=== PATIENT | male | born 1985 | race Caucasian/White ===

== ENCOUNTER 2024-12-25 08:44 | Emergency (ER) | payer SELFPAY ==
[2024-12-25 08:53] VITALS: BP 135/79
--- NOTE | 2024-12-25 09:32 | ED.GENMED ---
History of Present Illness
General
Chief Complaint: Back Pain
Source: patient
Exam Limitations: none
Time Seen by Provider: 12/25/24 09:03
Nursing documentation reviewed up to this point in time: agreed with
History of Present Illness
History of Present Illness:
39-year-old male presents emergency room complaining of low back pain for the last week on the left lower back. He has had this happen multiple times before and it usually goes away on its own. He feels is getting worse. He works in [employer] and
does manual labor all day long.
Past History
Past History
ED Past Medical History: GERD and Other (Cellulitis)
ED Past Surgical History: Orthopedic
Social History
Tobacco: Smoker
Alcohol: Occasional
Drug: None
Personal: Single
Living: with family
Employment: Employed
Review of Systems
Review of Systems
Allergies reviewed?: Yes
All Other Systems: Not applicable
Constitutional: Reports no symptoms
EENT: Reports no symptoms
Respiratory: Reports no symptoms
Cardiac: Reports no symptoms
ABD/GI: Reports no symptoms
: Reports no symptoms
Musculoskeletal: Reports back pain
Skin: Reports no symptoms
Neurological: Reports no symptoms
Endocrine: Reports no symptoms
Hematologic/Lymphatic: Reports no symptoms
Psychiatric: Reports no symptoms
Phy Exam
Physical Exam
Physical Exam:
Physical Exam
General: no apparent distress, not acutely ill
Neck: supple. no meningeal signs. normal posterior pharynx
Heart: equal radial pulses.
HEENT: Pupils equal round reactive to light, EOMI
Lungs: no acute respiratory distress.
Abdomen: normal bowel sounds. not tender. no CVAT
Neuro: alert and oriented. no focal neurological deficits cranial nerves II through XII intact
Skin: no rash
Psychiatric: well kept. interactive and cooperative
Extremities: no edema. no calf tenderness. negative homans. good distal pulses
back: non tender, no step off deformity
Course
Orders/Labs/Results
Orders:
Orders
12/25/24 09:30
Ketorolac [Toradol] 15 mg IM NOW STA
Lumbar Spine Complete, 4 View [CR Lumbar Spine Comp Min 4 Vw*] Urgent
Comment:
Reason For Exam: left lower back
Vital Signs
Initial and Last Documented VS:
Initial Vital Signs
Temp Pulse Resp BP Pulse Ox
98.4 F 85 16 135/79 98
12/25/24 08:53 12/25/24 08:53 12/25/24 08:53 12/25/24 08:53 12/25/24 08:53
Last Documented Vital Signs
Temp Pulse Resp BP Pulse Ox
98.4 F 85 16 135/79 98
12/25/24 08:53 12/25/24 08:53 12/25/24 08:53 12/25/24 08:53 12/25/24 09:35
MDM/Problems Addressed
Differential Diagnosis Includes:
Cauda equina, degenerative disc disease
MDM/Problems Addressed:
39-year-old male with low back pain, likely strain. No signs of cauda equina or epidural abscess. Patient stable for discharge. Follow-up primary care and pain management.
*Radiology
Radiology exam reviewed: radiology read reviewed (Lumbar x-ray no acute findings degenerative disc disease at L5-S1, L4-L5)
*Pulse Oximetry
SaO2: 98
Oxygen Mode of Delivery: Room air
Patient hypoxic: no
*Critical Care Note
Total Time (30-74mins, 75-104mins- exclusive of procedures): Not Applicable
Patient Management
Social determinants of health affecting care: Living situation and Strong social support
Escalation/DeEscalation of care consider admission/obs:
Admit not indicated
ED Attending Note
-
Portions of this chart may have been created with voice recognition software.� Occasional wrong word or��sound alike� substitutions may have occurred due to the inherent limitations of voice recognition software.
Discharge Plan
Departure
Patient Disposition: Home (Routine Discharge)
Date of Disposition: 12/25/24
Time of Disposition: 11:19
Patient with high blood pressure during this ER visit?: Yes
Condition: Good
Discharge Problem:
Low back pain, Degenerative disc disease
Instructions: Low Back Pain (DC), BLOOD PRESSURE
Prescriptions:
New
cyclobenzaprine 10 mg tablet
10 mg PO TID PRN (Reason: back pain or spasm) Qty: 10 0RF
No Action
Zantac 75 Pill
75 mg PO DAILY
amoxicillin-pot clavulanate 1 TABLET tablet
1 tab PO Q12 Qty: 14 0RF
oxycodone 5 MG tablet
5 mg PO Q4HPRN PRN (Reason: MILD TO MODERATE PAIN) Qty: 10 0RF
sulfamethoxazole-trimethoprim 1 TABLET tablet
1 tab PO BID Qty: 14 0RF
cephalexin [Keflex] 500 MG capsule
500 mg PO BID Qty: 14 0RF
ibuprofen 600 MG tablet
600 mg PO Q6 Qty: 20 0RF
Referrals:
Brandon Dale MD [Active, Anesthesiology] - Call in 1-3 days for appt
NONE,* [Family Provider, Internal Medicine]
Stand Alone Forms: Return to Work
Interventions
Interventions:
*Risk Screen - Suicide Last Done: 12/25/24 08:53
*Neglect/Abuse Screening Last Done: 12/25/24 08:53
*Nursing Disposition Last Done: 12/25/24 11:43
ED-Musculoskeletal Assessment Last Done: 12/25/24 09:02
Discharge Date and Time
Discharge Date/Time: 12/25/24 11:43
Print Language: YI
[2024-12-25] MEDS: TORADOL 15 MG IM (09:39)
== END 2024-12-25 11:43 | disposition home or self-care (01) ==
LOC: EMR 08:44
PROVIDERS: EMERGENCY PHYSICIAN Emergency Medicine
DX: M54.50 Low back pain, unspecified (principal); M51.370 Other intervertebral disc degeneration, lumbosacral region with discogenic back pain only; R03.0 Elevated blood-pressure reading, without diagnosis of hypertension; K21.9 Gastro-esophageal reflux disease without esophagitis; F17.200 Nicotine dependence, unspecified, uncomplicated
CPT/HCPCS: 99284; 96372; 72110